=== PATIENT | male | born 1990 | race African-American/Black ===

== ENCOUNTER → 2016-04-07 | Outpatient (CLI) | payer OTHER ==
[~2016-04-07] MED LIST: MAGNEVIST IV PRN
--- NOTE | 2016-04-07 14:29 | DIAGNOSTIC IMAGING REPORT ---
FLUOROSCOPIC GUIDED LEFT SHOULDER ARTHROGRAM FLUOROSCOPY TIME: 10 seconds HISTORY: Shoulder pain. LEFT SHOULDER Pain, instability PROCEDURE: After obtaining written informed consent, the patient was placed supine on the fluoroscopy table. A suitable site for needle insertion was marked using fluoroscopic guidance. The left shoulder was prepped and draped in the usual sterile fashion. 1% lidocaine was used for skin, subcutaneous and deep soft tissue anesthesia. Under intermittent fluoroscopic guidance, a 22 gauge 2.5 inch spinal needle was inserted into the left glenohumeral joint. A total of 14 cc of one-to-one mixture of dilute Magnevist (0.1 cc in 10 cc saline) and Optiray 300 were injected. The needle was then removed. There were no apparent complications. The patient was transported to for further imaging. IMPRESSION: Fluoroscopic-guided left shoulder arthrogram without immediate complication. Total injected volume was 14 cc. MR portion of the examination will be dictated separately. Electronically signed by: Gary Cole M.D. 04/07/2016 2:28 PM Dictated Date/Time: 04/07/2016 2:28 PM
--- NOTE | 2016-04-07 15:10 | DIAGNOSTIC IMAGING REPORT ---
LEFT SHOULDER MRI with INTRA-ARTICULAR CONTRAST HISTORY: LEFT SHOULDER Pain, instability TECHNIQUE: Multiplanar multisequence MRI of the left shoulder was performed following the intra-articular injection of contrast. COMPARISON STUDY: None. FINDINGS: AC joint: Intact Rotator cuff: Intact. No contrast within the subacromial/subdeltoid bursa. Labrum: Abnormal linear signal and contrast within the superior labrum consistent with a SLAP tear. Biceps tendon: Intact Bones: No fracture or dislocation. Cartilage: Intact Miscellaneous: Normal signal intensity within the visualized muscles of the shoulder. IMPRESSION: SLAP tear. Electronically signed by: Alvaro De León M.D. 04/07/2016 3:08 PM Dictated Date/Time: 04/07/2016 2:56 PM
== END | disposition home or self-care (01) ==
LOC: C.MRIBC 13:09
DX: M25.512 Pain in left shoulder (principal); M25.312 Other instability, left shoulder